=== PATIENT | female | born 1955 ===

== ENCOUNTER → 2019-05-05 | Outpatient (CLI) | payer BC ==
--- NOTE | 2019-05-06 08:36 | RAD ---
CHEST PA LATERAL History: Chest pain Comparison: 03/07/2013 two-view chest exam. Findings: Frontal and lateral views of chest were obtained. Left apical pleural thickening noted. The cardiomediastinal silhouette is normal. Pulmonary vasculature is normal. The lungs are clear. No pleural effusion or pneumothorax is seen. There is no acute bone abnormality. IMPRESSION: No acute cardiopulmonary process. Electronically signed by: Berry Stone MD (05/06/2019 8:33 AM) [facility]
== END | disposition home or self-care (01) ==
LOC: PMG 10:25
PROVIDERS: ATTEND Registered Nurse
DX: J92.9 Pleural plaque without asbestos (principal)
CPT/HCPCS: 71046

== ENCOUNTER → 2021-10-08 | Outpatient (CLI) | payer MEDICARE ==
--- NOTE | 2021-10-08 17:01 | RAD ---
EXAM: XR CHEST 2V 10/08/2021 1:22 PM CLINICAL INDICATION: Persistent cough COMPARISON: Chest radiograph 05/05/2019 TECHNIQUE: PA and lateral views of the chest FINDINGS: The heart and mediastinum are normal. Lungs are well-expanded. There are possible opaciti es in the left lung base. The lungs are otherwise clear. Pulmonary vascularity is normal. The thorac ic skeleton is intact. IMPRESSION: Possible very subtle opacities in the left lung base, which could reflect pneumonia. James mmend follow-up radiograph to ensure resolution. Electronically signed by: Estela Ortiz MD (10/08/2021 4:59 PM) [id number]
== END ==
LOC: RAD 13:11
PROVIDERS: ATTEND Nurse Practitioner Family
DX: R05.9 Cough, unspecified (principal)
CPT/HCPCS: 71046